=== PATIENT | male | born 1985 | race American Indian/Alaskan Native ===

== ENCOUNTER 2017-04-28 17:31 | Observation (INO) | payer OTHER ==
[2017-04-28] MEDS ORDERED: Sodium Chloride 0.9% 1,000 ML IV STA (17:45)
--- NOTE | 2017-04-28 18:00 | ED PDOC ---
HPI: Psych/Substance Abuse Time Seen by Provider: 04/28/17 17:44 Chief Complaint (Nursing): Psychiatric Evaluation Chief Complaint (Provider): altered mental status ED Caveat: Altered Mental Status History Per: EMS Additional Complaint(s): [place] altered. intermittently moaning and flailing arms and legs. when asked questions pt speaks incoherently Shakes his head "yes" when asked if he did drugs, specifically PCP. Shakes his head "no" when asked if he drank alcohol. Past Medical History Reviewed: Nursing Documentation, Vital Signs, Unable To Obtain (pmh) Vital Signs: Last Vital Signs Temp 100.2 F H 04/28/17 17:40 Pulse 92 H 04/28/17 17:40 Resp 16 04/28/17 17:40 BP 139/81 04/28/17 17:40 Pulse Ox 99 04/28/17 17:40 - Medical History Other PMH: unknown - Surgical History Other surgeries: unknown - Family History Family History: States: Unknown Family Hx - Social History Drugs: Other (PCP) - Allergies Allergies/Adverse Reactions: Allergies Allergy/AdvReac Type Severity Reaction Status Date / Time Unobtainable Allergy Verified 04/28/17 17:41 Review of Systems Review Of Systems: ROS cannot be obtained secondary to pt's inabilty to answer questions. Physical Exam - Reviewed Nursing Documentation Reviewed: Yes Vital Signs Reviewed: Yes - Physical Exam Appears: Positive for: In Acute Distress (intoxicated obtunded) Head Exam: Positive for: ATRAUMATIC, NORMOCEPHALIC Skin: Positive for: Warm, Dry Eye Exam: Positive for: EOMI, PERRL, Conjunctival injection ENT: Positive for: Normal ENT Inspection Neck: Positive for: Painless ROM, Supple Cardiovascular/Chest: Positive for: Regular Rate, Rhythm, Chest Non Tender. Negative for: Murmur Respiratory: Positive for: Normal Breath Sounds. Negative for: Accessory Muscle Use, Wheezing, Respiratory Distress Gastrointestinal/Abdominal: Positive for: Soft. Negative for: Tenderness Back: Positive for: Normal Inspection. Negative for: Decreased ROM Extremity: Positive for: Normal ROM. Negative for: Pedal Edema, Deformity Lymphatic: Negative for: Adenopathy Neurologic/Psych: Positive for: Other (Flat affect, speaks incoherently and moans/yells intermittently for no reason. Otherwise lethargic and appears to be sleeping.). Negative for: Oriented, Motor/Sensory Deficits - Laboratory Results Result Diagrams: 04/28/17 18:50 04/28/17 18:50 - ECG O2 Sat by Pulse Oximetry: 99 ED OBSERVATION - Observation admission statement Patient is being placed in observation because:: Pt with episodes of agitation requiring ativan. Will need observation until sobriety and safety can be confirmed. - Goals of Observation Goals of observation are:: Sobriety - Progress Note Progress Note: 04/28/17 22:57 On reeval pt sleeping deeply. Stable.
[2017-04-28 18:56] LABS: BASO # 0.1 K/uL (0.0-0.2); EOS # 0.3 K/uL (0.0-0.7); EOS % 2.4 % (0.0-4.0); HEMOGLOBIN 13.2 g/dL (12.0-18.0); LYMPH # 1.8 K/uL (1.0-4.3); LYMPH % 13.1 % (20.0-40.0); MEAN CELL VOLUME 87.6 fl (80.0-94.0); MEAN CORPUSCULAR HEMOGLOBIN 28.8 pg (27.0-31.0); MEAN CORPUSCULAR HGB CONC 32.8 g/dL (33.0-37.0); MEAN PLATELET VOLUME 6.9 fl (7.2-11.7); MONO # 0.9 K/uL (0.0-0.8); MONO % 6.7 % (0.0-10.0); NEUT # 10.6 K/uL (1.8-7.0); NEUT % 76.8 % (50.0-75.0); RBC 4.58 Mil/uL (4.40-5.90); RED CELL DISTRIBUTION WIDTH 14.5 % (11.5-14.5); WHITE BLOOD COUNT 13.9 K/uL (4.8-10.8)
[2017-04-28 19:07] LABS: ALB/GLOB RATIO 1.2 (1.0-2.1); ALBUMIN 4.2 g/dL (3.5-5.0); ALT/SGPT 33 U/L (21-72); AST/SGOT 23 U/L (17-59); BLOOD UREA NITROGEN 17 mg/dl (9-20); CALCIUM 8.7 mg/dL (8.4-10.2); GFR AFRICAN-AMERICAN > 60; GFR NON-AFRICAN AMERICAN > 60
--- NOTE | 2017-04-29 00:16 | ED PDOC ---
- Laboratory Results Result Diagrams: 04/28/17 18:50 04/28/17 18:50 - ECG O2 Sat by Pulse Oximetry: 99 (RA) Pulse Ox Interpretation: Normal Medical Decision Making Medical Decision Making: Time: 0000 Initial plan: --Patient signed out to me by Dr. Lynn. Pending clinical sobriety. --ED OBSERVATION Scribe Attestation: Documented by Mercy Stein, acting as a scribe for Varinder Coon MD. Scribe Attestation: All medical record entries made by the Scribe were at my direction and personally dictated by me. I have reviewed the chart and agree that the record accurately reflects my personal performance of the history, physical exam, medical decision making, and the department course for this patient. I have also personally directed, reviewed, and agree with the discharge instructions and disposition. Disposition - Clinical Impression Clinical Impression: PCP (phencyclidine) abuse - POA Present On Arrival: None - Disposition Disposition: Routine/Home Disposition Time: 04:30 Condition: STABLE ED OBSERVATION Date of observation admission: 04/29/17 Time of observation admission: 00:00 - Observation admission statement Patient is being placed in observation because:: ALCOHOL INTOXICATION - Goals of Observation Goals of observation are:: CLINICAL SOBRIETY - Progress Note Progress Note: 04/29/17 01:30 Pending Clinical Sobriety 04/29/17 03:00 Pending Clinical Sobriety 04/29/17 04:30 Pt. sober, steady gait, alert and awake, will d/c home.
[2017-04-29 00:38] VITALS: RESP 17
[2017-04-29 03:33] VITALS: BP 117/69; PULSE 71; TEMP 98.4
[2017-04-29 03:46] VITALS: O2SAT 99
--- NOTE | 2017-04-29 11:29 | CARD ---
APPROVED REPORT EKG Measurement Heart [id number] CT [id number] <Conclusion> Normal sinus rhythm Normal ECG
== END 2017-04-29 05:47 | disposition home or self-care (01) ==
LOC: H.ER 17:31 → H.EROBSV 18:05 → MERGE 18:05
PROVIDERS: ADMIT Emergency Medicine; ATTEND Emergency Medicine
DX: F16.10 Hallucinogen abuse, uncomplicated (principal); F10.129 Alcohol abuse with intoxication, unspecified; R41.82 Altered mental status, unspecified

== ENCOUNTER 2018-02-05 21:31 | Emergency (ER) | payer OTHER ==
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
[2018-02-06 00:17] VITALS: BP 137/75; RESP 18; TEMP 98.4; O2SAT 99
[2018-02-06 00:38] LABS: BASO # 0.1 K/uL (0.0-0.2); BASO % 0.7 % (0.0-2.0); EOS # 0.5 K/uL (0.0-0.7); EOS % 3.8 % (0.0-4.0); HEMOGLOBIN 13.2 g/dL (12.0-18.0); LYMPH # 1.5 K/uL (1.0-4.3); LYMPH % 10.2 % (20.0-40.0); MEAN CELL VOLUME 85.5 fl (80.0-94.0); MEAN CORPUSCULAR HEMOGLOBIN 27.8 pg (27.0-31.0); MEAN CORPUSCULAR HGB CONC 32.5 g/dL (33.0-37.0); MEAN PLATELET VOLUME 6.7 fl (7.2-11.7); MONO # 1.3 K/uL (0.0-0.8); MONO % 8.9 % (0.0-10.0); NEUT # 10.9 K/uL (1.8-7.0); NEUT % 76.4 % (50.0-75.0); RBC 4.74 Mil/uL (4.40-5.90); RED CELL DISTRIBUTION WIDTH 15.3 % (11.5-14.5); WHITE BLOOD COUNT 14.3 K/uL (4.8-10.8)
[2018-02-06 00:57] LABS: ALB/GLOB RATIO 0.9 (1.0-2.1); ALBUMIN 3.7 g/dL (3.5-5.0); ALT/SGPT 27 U/L (21-72); AST/SGOT 17 U/L (17-59); BLOOD UREA NITROGEN 10 mg/dl (9-20); CALCIUM 8.7 mg/dL (8.4-10.2); GFR AFRICAN-AMERICAN > 60; GFR NON-AFRICAN AMERICAN > 60
[2018-02-06 01:02] VITALS: PULSE 98
--- NOTE | 2018-02-06 08:26 | CT ---
PROCEDURE: CT HEAD WITHOUT CONTRAST. HISTORY: substance abuse, fall COMPARISON: Unenhanced head CT 09/11/2016. TECHNIQUE: Axial computed tomography images were obtained through the head/brain without intravenous contrast. Radiation dose: Total exam DLP = 1275.97 mGy-cm. This CT exam was performed using one or more of the following dose reduction techniques: Automated exposure control, adjustment of the mA and/or kV according to patient size, and/or use of iterative reconstruction technique. FINDINGS: HEMORRHAGE: No intracranial hemorrhage. BRAIN: Stable examination. Normal salazar-white matter differentiation and density are once again appreciated throughout the cerebrum and cerebellum with the brainstem appearing unremarkable as well. There is no mass effect. There is no suspicious extra-axial fluid collection and the midline brain anatomy appears diffusely unremarkable. VENTRICLES: Unremarkable. No hydrocephalus. CALVARIUM: Unremarkable. PARANASAL SINUSES: Multifocal ethmoid sinus disease seen bilaterally as well as at the left maxillary sinus in the interval. MASTOID AIR CELLS: Unremarkable as visualized. No inflammatory changes. OTHER FINDINGS: Numerous scalp soft tissue lesions are reiterated once again including and new dominant nodular lesion at the right occipital dermis/ subcutaneous soft tissue measure 1.5 x 3.0 cm and 18 Hounsfield units. IMPRESSION: Unremarkable unenhanced head CT intracranially. Numerous soft tissue nodular foci are again seen scattered throughout the scalp diffusely including a new dominant nodule 3 cm greatest dimension the right occipital dermis/subcutaneous fat. Further clinical correlation is recommended. Concordant preliminary report from [facility], 02/06/2018.
== END 2018-02-06 06:45 | disposition home or self-care (01) ==
LOC: H.ER 21:31
DX: F16.10 Hallucinogen abuse, uncomplicated (principal)